=== PATIENT | female | born 1935 | race Caucasian/White ===

== ENCOUNTER → 2016-07-16 | Outpatient (CLI) | payer MEDICARE, OTHER | END | disposition home or self-care (01) | LOC: PCVCIMAG 10:33 | PROVIDERS: ATTEND Nuclear Medicine Nuclear Cardiology | DX: I70.213 Atherosclerosis of native arteries of extremities with intermittent claudication, bilateral legs (principal); I25.10 Atherosclerotic heart disease of native coronary artery without angina pectoris; I77.9 Disorder of arteries and arterioles, unspecified; I10 Essential (primary) hypertension; E78.00 Pure hypercholesterolemia, unspecified; R06.09 Other forms of dyspnea | CPT/HCPCS: 93925; G0463 ==

== ENCOUNTER → 2016-08-02 | Outpatient (CLI) | payer MEDICARE, OTHER ==
[~2016-08-02] MED LIST: CLOPIDOGREL BISULFATE 75 MG TABLET ONE; DIAZEPAM 10 MG TABLET. ONE; EPTIFIBATIDE BOLUS 2,000 MCG/ML 10ML VIAL. IV ONE; FENTANYL PF 100 MCG/2 ML VIAL. ONE; HEPARIN SODIUM 5,000 UNIT/ML VIAL. ONE; HEPARIN for ARTERIAL LINE 1,500 ML ONE; IODIXANOL 270 MG/ML 100 ML VIAL. ONE; IOHEXOL 350 MG/ML 100 ML VIAL. ONE; IV NORMAL SALINE 1000ML BAG 1,000 ML ONE; IV NORMAL SALINE 500ML BAG 500 ML ONE; LIDOCAINE 1% Multi-Dose 20 ML VIAL. ONE; MIDAZOLAM HCL/PF 2 MG/2 ML VIAL. ONE; ONDANSETRON PF 4 MG/2 ML VIAL. ONE; hydrALAZINE 20 MG/ML VIAL. ONE
== END | disposition home or self-care (01) ==
LOC: PCVCINTER 07:42
PROVIDERS: ATTEND Nuclear Medicine Nuclear Cardiology
DX: I70.1 Atherosclerosis of renal artery (principal); I77.1 Stricture of artery; I70.201 Unspecified atherosclerosis of native arteries of extremities, right leg
CPT/HCPCS: 36252; 37186; 37225; 37236; 75716; 76937; 93458; C1725; C1751; C1757; C1760; C1769; C1876; C1885; C1887; C1894; C2623; J0360; J1327; J1644; J2250; J2405; J3010; J7030; J7040; Q9967

== ENCOUNTER → 2016-11-12 | Outpatient (CLI) | payer MEDICARE, OTHER ==
--- NOTE | 2016-11-12 14:27 | PCVCIMAG ---
EXAM: BILATERAL CAROTID DUPLEX INDICATION: Carotid Occlusive Disease. FINDINGS: Doppler Measurements (centimeters per second): RIGHT: Peak CCA-70, Peak ECA-90, Diastolic ICA-21, Peak ICA-96, ICA/CCA Ratio-1.4. LEFT: Peak CCA-88, Peak ECA-75, Diastolic ICA-19, Peak ICA-101, ICA/CCA Ratio-1.1. RIGHT CAROTID: The carotid bulb has mild plaque. The proximal internal carotid artery shows <40% stenosis. The common carotid artery shows no significant stenosis. The external carotid artery shows no significant stenosis. LEFT CAROTID: The carotid bulb has mild plaque. The proximal internal carotid artery shows <40% stenosis. The common carotid artery shows no significant stenosis. The external carotid artery shows no significant stenosis. Antegrade flow in both vertebral arteries. IMPRESSION: <40% stenosis of the right internal carotid artery with mild plaque. <40% stenosis of the left internal carotid artery with mild plaque. LOC:[id number]
--- NOTE | 2016-11-12 14:39 | PCVCIMAG ---
EXAM: NONINVASIVE ARTERIAL EXAMINATION OF BOTH LOWER EXTREMITIES INCLUDING PRE AND POST EXERCISE PRESSURE MEASUREMENTS AND DOPPLER WAVEFORMS INDICATION: Peripheral Arterial Disease. Leg pain. FINDINGS: Right Brachial: 126 mm Hg. Right Dorsalis Pedis: 85 mm Hg. Right Posterior Tibial: 87 mm Hg. Right RICHARD = 0.69. Left Brachial: 120 mm Hg. Left Dorsalis Pedis: 97 mm Hg. Left Posterior Tibial: 100 mm Hg. Left RICHARD = 0.79. Post Exercise: Right Brachial 121 mm Hg. Right Posterior Tibial: 48 mm Hg. Left Posterior Tibial: 85 mm Hg. Right RICHARD = 0.40. Left RICHARD = 0.70. IMPRESSION: Mild/moderate resting ischemia in the right lower extremity. Moderately severe exercise induced ischemia in the right lower extremity. Mild resting ischemia in the left lower extremity. Mild/moderate exercise induced ischemia in the left lower extremity. LOC:[id number]
--- NOTE | 2016-11-12 14:49 | PCVCIMAG ---
EXAM: BILATERAL LOWER EXTREMITY ARTERIAL DUPLEX INDICATION: Peripheral Arterial Disease. Leg pain. FINDINGS: Right Leg: Satisfactory arterial waveforms in the common femoral and profunda femoral artery and in the superficial femoral artery and popliteal artery. Only very mild stenosis in the mid superficial femoral artery is noted not felt to be flow-limiting. 50-60% stenosis proximal/mid right anterior tibial artery. Peroneal artery and posterior tibial arteries are patent. Left Leg: Satisfactory arterial waveforms in the common femoral artery. 70% stenosis at the origin the profunda femoral artery. Chronic occlusion of the [place] superficial femoral artery and upper popliteal artery. Postsurgical changes of [id number]-ilbum-[id number] popliteal artery bypass graft which is maintaining satisfactory patency. 50% stenosis mid left anterior tibial artery. The peroneal artery and posterior tibial arteries are patent. IMPRESSION: No significant right superficial femoral artery or popliteal artery stenosis. 50-60% stenosis proximal/mid right anterior tibial artery. Left femoral-below knee popliteal artery bypass graft maintaining satisfactory patency. 50% stenosis mid left anterior tibial artery. LOC:[id number]
== END | disposition home or self-care (01) ==
LOC: PCVCIMAG 12:53
PROVIDERS: ATTEND Nuclear Medicine Nuclear Cardiology
DX: I70.203 Unspecified atherosclerosis of native arteries of extremities, bilateral legs (principal); I65.23 Occlusion and stenosis of bilateral carotid arteries; I25.10 Atherosclerotic heart disease of native coronary artery without angina pectoris; I77.89 Other specified disorders of arteries and arterioles; I10 Essential (primary) hypertension; E78.00 Pure hypercholesterolemia, unspecified; Z95.828 Presence of other vascular implants and grafts; Z90.49 Acquired absence of other specified parts of digestive tract; Z87.891 Personal history of nicotine dependence; Z79.82 Long term (current) use of aspirin; Z88.0 Allergy status to penicillin; Z88.2 Allergy status to sulfonamides; Z88.8 Allergy status to other drugs, medicaments and biological substances
CPT/HCPCS: 80061; 93005; 93880; 93923; 93925; G0463; 93924

== ENCOUNTER → 2017-01-13 | Outpatient (CLI) | payer MEDICARE, OTHER | END | disposition home or self-care (01) | LOC: PCVCCLINIC 09:35 | PROVIDERS: ATTEND Internal Medicine Cardiovascular Disease | DX: I73.9 Peripheral vascular disease, unspecified (principal); I25.10 Atherosclerotic heart disease of native coronary artery without angina pectoris; I77.9 Disorder of arteries and arterioles, unspecified; I10 Essential (primary) hypertension; E78.00 Pure hypercholesterolemia, unspecified; Z90.49 Acquired absence of other specified parts of digestive tract; Z90.710 Acquired absence of both cervix and uterus; Z95.828 Presence of other vascular implants and grafts; Z87.891 Personal history of nicotine dependence; Z88.0 Allergy status to penicillin; Z88.2 Allergy status to sulfonamides; Z88.8 Allergy status to other drugs, medicaments and biological substances; Z79.82 Long term (current) use of aspirin | CPT/HCPCS: 80061; 93005; G0463 ==

== ENCOUNTER → 2017-05-31 | Outpatient (CLI) | payer MEDICARE, OTHER ==
[~2017-05-31] MED LIST changes: -CLOPIDOGREL BISULFATE 75 MG TABLET ONE; +DIAZEPAM 10 MG TABLET.; -DIAZEPAM 10 MG TABLET. ONE; +EPINEPHrine 1 MG/ML VIAL; -EPTIFIBATIDE BOLUS 2,000 MCG/ML 10ML VIAL. IV ONE; -FENTANYL PF 100 MCG/2 ML VIAL. ONE; +HEPARIN SODIUM 5,000 UNIT/ML VIAL for PCVC.; -HEPARIN SODIUM 5,000 UNIT/ML VIAL. ONE; -HEPARIN for ARTERIAL LINE 1,500 ML ONE; +IODIXANOL 270 MG/ML 100 ML VIAL.; -IODIXANOL 270 MG/ML 100 ML VIAL. ONE; -IOHEXOL 350 MG/ML 100 ML VIAL. ONE; +IV NORMAL SALINE 1000ML BAG 1,000 ML; -IV NORMAL SALINE 1000ML BAG 1,000 ML ONE; -IV NORMAL SALINE 500ML BAG 500 ML ONE; +LIDOCAINE 1% Multi-Dose 20 ML VIAL.; -LIDOCAINE 1% Multi-Dose 20 ML VIAL. ONE; +MIDAZOLAM HCL/PF 2 MG/2 ML VIAL.; -MIDAZOLAM HCL/PF 2 MG/2 ML VIAL. ONE; +NITROGLYCERIN PREMIX 250 ML IV; -ONDANSETRON PF 4 MG/2 ML VIAL. ONE; +VANCOMYCIN 1GM IVPB FOR OMNI 250 ML; +fentaNYL PF VIAL 100 MCG/2 ML VIAL; +hydrALAZINE 20 MG/ML VIAL.; -hydrALAZINE 20 MG/ML VIAL. ONE
== END | disposition home or self-care (01) ==
LOC: PCVCINTER 09:16
DX: I70.213 Atherosclerosis of native arteries of extremities with intermittent claudication, bilateral legs (principal); I25.10 Atherosclerotic heart disease of native coronary artery without angina pectoris; I10 Essential (primary) hypertension; I70.1 Atherosclerosis of renal artery
CPT/HCPCS: 36245; 36252; 37236; 75716; 76937; 99152; 99153; C1713; C1725; C1751; C1769; C1874; C1894; J0171; J0360; J1644; J2250; J3010; J3370; J3490; J7030

== ENCOUNTER → 2017-07-12 | Outpatient (CLI) | payer MEDICARE, OTHER | END | disposition home or self-care (01) | LOC: PCVCCLINIC 16:23 | DX: I25.10 Atherosclerotic heart disease of native coronary artery without angina pectoris (principal); I70.1 Atherosclerosis of renal artery; I77.9 Disorder of arteries and arterioles, unspecified; I73.9 Peripheral vascular disease, unspecified; E78.00 Pure hypercholesterolemia, unspecified; I10 Essential (primary) hypertension; Z98.890 Other specified postprocedural states; Z87.891 Personal history of nicotine dependence; Z79.82 Long term (current) use of aspirin; Z79.899 Other long term (current) drug therapy | CPT/HCPCS: 93005; G0463 ==

== ENCOUNTER → 2017-12-23 | Outpatient (CLI) | payer MEDICARE, OTHER ==
--- NOTE | 2017-12-23 13:59 | PCVCIMAG ---
EXAM: BILATERAL CAROTID DUPLEX INDICATION: Carotid Occlusive Disease. FINDINGS: Doppler Measurements (centimeters per second): RIGHT: Peak CCA-69, Peak ECA-74, Diastolic ICA-13, Peak ICA-71, ICA/CCA Ratio-1.0. LEFT: Peak CCA-51, Peak ECA-78, Diastolic ICA-22, Peak ICA-77, ICA/CCA Ratio-1.2. RIGHT CAROTID: The carotid bulb has moderate plaque. The proximal internal carotid artery shows <40% stenosis. The common carotid artery shows no significant stenosis. The external carotid artery shows no significant stenosis. LEFT CAROTID: The carotid bulb has moderate plaque. The proximal internal carotid artery shows <40% stenosis. The common carotid artery shows no significant stenosis. The external carotid artery shows no significant stenosis. Antegrade flow in both vertebral arteries. IMPRESSION: <40% stenosis of the right internal carotid artery with moderate plaque. <40% stenosis of the left internal carotid artery with moderate plaque. No change since October 2016 study. LOC:[id number]
--- NOTE | 2017-12-23 14:32 | PCVCIMAG ---
EXAM: BILATERAL RENAL ULTRASOUND AND BILATERAL RENAL DUPLEX INDICATION: Hypertension FINDINGS: Right kidney: Length measures 11.5 cm. No hydronephrosis or extensive renal scarring. Right renal duplex: Adequate technical quality. No sonographic evidence of renal artery stenosis. The aortic to renal artery ratio is 2.4. The renal vein is patent. Left kidney: Length measures 10.8 cm. No hydronephrosis or extensive renal scarring. Left renal duplex: Adequate technical quality. No sonographic evidence of renal artery stenosis. The aortic to renal artery ratio is 2.1. The renal vein is patent. Bladder: No obvious abnormalities. IMPRESSION: No significant renal artery stenosis. No hydronephrosis bilaterally. LOC:[id number]
--- NOTE | 2017-12-23 15:11 | PCVCIMAG ---
EXAM: BILATERAL LOWER EXTREMITY ARTERIAL DUPLEX INDICATION: Peripheral Arterial Disease. Leg pain. FINDINGS: Right Leg: Common femoral profunda femoral arteries are patent. Increased systolic velocity 140 cm/s [place] right superficial femoral artery consistent with 80-90% stenosis has increased in severity since May 2017 study. Popliteal artery is patent although the waveforms are blunted somewhat. The anterior tibial, peroneal, and posterior tibial arteries are patent. Left Leg: Common femoral and profunda femoral arteries are patent. [place] superficial femoral artery shows complete occlusion. Postsurgical changes of nibtbzh-kftlh-xhze popliteal artery bypass graft is maintaining satisfactory patency. The anterior tibial, peroneal, and posterior tibial arteries are patent. IMPRESSION: Interval development of 80-90% stenosis mid [place] right superficial femoral artery. Previous left femoral-popliteal artery vein bypass graft maintaining satisfactory patency. LOC:[id number]
== END | disposition home or self-care (01) ==
LOC: PCVCIMAG 14:56
PROVIDERS: ATTEND Internal Medicine Cardiovascular Disease
DX: I73.9 Peripheral vascular disease, unspecified (principal); I70.1 Atherosclerosis of renal artery; I10 Essential (primary) hypertension; I65.23 Occlusion and stenosis of bilateral carotid arteries; I77.9 Disorder of arteries and arterioles, unspecified; I25.10 Atherosclerotic heart disease of native coronary artery without angina pectoris; E78.00 Pure hypercholesterolemia, unspecified; I48.91 Unspecified atrial fibrillation; Z79.82 Long term (current) use of aspirin
CPT/HCPCS: 76770; 93880; 93925; 93975; G0463

== ENCOUNTER → 2017-12-30 | Outpatient (CLI) | payer MEDICARE, OTHER ==
[~2017-12-30] MED LIST changes: -DIAZEPAM 10 MG TABLET.; +DIAZEPAM 10 MG TABLET. ONE; -EPINEPHrine 1 MG/ML VIAL; +EPTIFIBATIDE BOLUS 2,000 MCG/ML 10ML VIAL. IV ONE; +HEPARIN 1,000 UNIT/ML VIAL for PCVC ONE; -HEPARIN SODIUM 5,000 UNIT/ML VIAL for PCVC.; +HEPARIN SODIUM 5,000 UNIT/ML VIAL for PCVC. ONE; -IODIXANOL 270 MG/ML 100 ML VIAL.; +IODIXANOL 270 MG/ML 100 ML VIAL. ONE; +IOHEXOL 350 MG/ML 100 ML VIAL. ONE; -IV NORMAL SALINE 1000ML BAG 1,000 ML; +IV NORMAL SALINE 1000ML BAG 1,000 ML ONE; +IV NORMAL SALINE 500ML BAG 1,500 ML ONE; -LIDOCAINE 1% Multi-Dose 20 ML VIAL.; +LIDOCAINE 1%/EPI 1:100,000 20 ML VIAL. ONE; +METOPROLOL TARTRATE 5 MG/5 ML VIAL. IVP ONE; -MIDAZOLAM HCL/PF 2 MG/2 ML VIAL.; +MIDAZOLAM HCL/PF 2 MG/2 ML VIAL. ONE; -NITROGLYCERIN PREMIX 250 ML IV; +ONDANSETRON PF 4 MG/2 ML VIAL. ONE; -VANCOMYCIN 1GM IVPB FOR OMNI 250 ML; +VANCOMYCIN 1GM IVPB FOR OMNI 250 ML ONE; -fentaNYL PF VIAL 100 MCG/2 ML VIAL; +fentaNYL PF VIAL 100 MCG/2 ML VIAL ONE; -hydrALAZINE 20 MG/ML VIAL.
--- NOTE | 2017-12-30 16:56 | PCVCINTER ---
APPROVED REPORT Study performed: 12/30/2017 09:47:50 Patient Details Patient Status: Out-Patient Room #: 3 The patient is a 82 year-old Female Event Personnel Juan A Palma MD, Gabriel Chapa RT(R), Nick Kunz RN, Nat Sandhu RT(R)() Risk Factors Arterial HypertensionDysplipidemia (Type: 1), Cerebrovascular DiseasePeripheral Vascular Disease, Hypercholesterolemia, Last Creatanine 0.9Tobacco History (Former) Previous Procedures/Diagnoses Previous Femoral Procedure, Previous Vascular Surgery, Peripheral vascular disease->Positive non-invasive/invasive test, PVD, Hypertension, CAD Procedure Narrative A 6F sheath was inserted into the left femoral artery. Coronary angiography was performed using coronary diagnostic catheters. The right coronary system was accessed and visualized with a JR4 catheter. The left coronary system was accessed and visualized with a JL4 catheter. The left ventricle was accessed and visualized with a Straight Pigtail catheter. Left ventriculogram was performed in SILVA projection. Hemodynamics The aortic pressure is 140/56 mmHg with a mean of mmHg. The left ventricular pressure is 119/-1 mmHg with a mean of -4 mmHg. Conclusion #1 normal left ventricular size and hyperdynamic LV function EF 65% #2 LAD with a moderate proximal mid vessel lesion of 30-40% extends to the apex #3 circumflex OM nondominant moderate sizesignificant occlusive disease #4 dominant right coronary with no occlusive disease Recommendations and plan: Continue aggressive risk factor modification. Follow post peripheral stent protocol see Dr. Cueto's dictation.
--- NOTE | 2017-12-30 18:21 | PCVCINTER ---
EXAM: 1. AORTOGRAM AND BILATERAL LOWER EXTREMITY RUNOFF ANGIOGRAM 2. BILATERAL RENAL ANGIOGRAPHY 3. RIGHT SUPERFICIAL FEMORAL ARTERY ATHERECTOMY AND DRUG COATED BALLOON ANGIOPLASTY. 4. SECONDARY THROMBECTOMY RIGHT SUPERFICIAL FEMORAL ARTERY. 5. LEFT RENAL ARTERY STENT PLACEMENT. INDICATION: Peripheral arterial disease. Coronary artery disease. Leg pain. Hypertension. Renal atherosclerosis. No prior catheter based angiographic study is available. A full diagnostic angiogram study is performed today and the decision to intervene is based on this diagnostic study. PROCEDURE: Procedure and risks of angiography intervention is appropriate including limb loss stroke and were discussed with the patient's family and consent obtained. The patient's left groin was prepped in the normal sterile fashion. IV conscious sedation was used throughout procedure with appropriate monitoring from 9:00 AM through 10:30 AM. Ultrasound was used to interrogate the left groin and showed the left common femoral artery to be patent. A permanent spot film was obtained. Under ultrasound guidance access into the left common femoral artery was obtained and a 5 Stateless sheath was placed. Through this a 5 Stateless flush catheter was placed into the abdominal aorta at the level of the renal arteries and AP aortogram was performed. Catheter was positioned at the aortic bifurcation and both oblique views of the pelvis were obtained. Catheter was positioned into the left external iliac artery and left leg runoff angiography was performed. Catheter was exchanged for a visceral catheter was placed into the right renal arteries and right renal angiograms obtained. Catheter was placed into the the left renal arteries and left renal angiograms were obtained. Catheter was advanced to the level of the right external iliac artery and right leg runoff angiography was obtained. Patient was given 4000 units of heparin. Stent placement across the areas of high-grade stenosis in the left renal artery was carried out with a 5 x 12 [place] blue stent with subsequent dilatation to 5.0 mm. A 6 Stateless crossover sheath was placed via the left groin to the level of the right common femoral artery. Atherectomy of the right mid/distal superficial femoral artery was performed with 2.0 mm [employer] laser atherectomy catheter in the standard fashion. Following atherectomy small areas of thrombus were observed and because of this secondary thrombectomy throughout the right superficial femoral artery was carried out with mechanical suction thrombectomy catheter in the standard fashion. Minimal debris was removed. Following this drug coated balloon angioplasty of the right mid/distal superficial femoral artery was carried out with a 4 x 120 and 4 x 120 [employer] Amisha Jagdeep CANDLES POURER catheters. Follow-up angiogram was performed. Catheters and wires removed. Sheath was removed and hemostasis obtained using the FISH device. No immediate complications. FINDINGS: Aortogram: There is one right and 2 left renal arteries. Moderate plaque infrarenal abdominal aorta. Pelvis: Previous stents in the right and left common iliac arteries are maintaining satisfactory patency. Both internal iliac arteries are patent. Both external iliac arteries are patent. The right common and profunda femoral arteries are patent. In the distal left common femoral artery appears to be a 50% stenosis with 60-70% stenosis noted at the origin the left profunda femoral artery. [place] left superficial femoral artery is occluded Right renal artery: Previous stent proximal vessel maintaining good patency. Mid and distal vessel also patent. Left renal artery: There are 2 left renal arteries. The upper renal artery is the smaller renal artery but shows good patency throughout. In the lower renal artery proximally is a prior stent and at the distal margin of the stent is 80% stenosis. Right leg: The superficial femoral artery is somewhat small in size and shows 99% stenoses in its mid and distal portion. The popliteal artery is patent. There is high-grade stenosis in the mid anterior tibial artery. The peroneal artery shows good patency throughout as does the posterior tibial artery although both vessels are somewhat small. Left leg: . Occlusion of the superficial femoral artery and upper popliteal artery within the areas of prior stent. Postsurgical changes of femoral to below-knee popliteal artery saphenous vein graft which appears patent. There is at least 50% stenosis at the proximal anastomosis with the distal left common femoral artery. Otherwise the graft is widely patent throughout. The [place] mid and distal popliteal artery is small but otherwise patent. The anterior tibial artery is occluded throughout much of its length. The posterior tibial artery is diminutive in size. The most dominant runoff vessel is the peroneal artery which shows adequate patency to refill the plantar arteries. Right superficial femoral artery: Following procedure as noted above vessel shows satisfactory patency. Left renal artery: Following procedure as above vessel shows good patency throughout. IMPRESSION: There is 99% stenosis in the mid and distal portion of the right superficial femoral artery again was treated with atherectomy and drug coated balloon angioplasty with satisfactory patency restored. Previous left femoral-popliteal artery vein graft remains patent although the junction of the left common femoral artery and the proximal anastomosis of the graft is at least a 50% stenosis. Follow-up in 1 month with duplex will be obtained. LOC:[id number]
== END | disposition home or self-care (01) ==
LOC: PCVCINTER 07:39
PROVIDERS: ATTEND Internal Medicine Cardiovascular Disease
DX: I70.293 Other atherosclerosis of native arteries of extremities, bilateral legs (principal); I70.1 Atherosclerosis of renal artery; I25.10 Atherosclerotic heart disease of native coronary artery without angina pectoris; I70.0 Atherosclerosis of aorta; I10 Essential (primary) hypertension; E78.00 Pure hypercholesterolemia, unspecified; I48.91 Unspecified atrial fibrillation; Z79.899 Other long term (current) drug therapy; G45.4 Transient global amnesia; Z90.49 Acquired absence of other specified parts of digestive tract; Z90.710 Acquired absence of both cervix and uterus; Z98.890 Other specified postprocedural states; Z87.891 Personal history of nicotine dependence; Z91.040 Latex allergy status; Z88.0 Allergy status to penicillin; Z88.2 Allergy status to sulfonamides; Z88.1 Allergy status to other antibiotic agents; Z88.8 Allergy status to other drugs, medicaments and biological substances
CPT/HCPCS: 36252; 37186; 37225; 37236; 75716; 76937; 93458; 99152; 99153; C1725; C1751; C1757; C1769; C1876; C1885; C1887; C1894; C2623; J1327; J1644; J2250; J2405; J3010; J3370; J3490; J7030; J7040; Q9966; Q9967

== ENCOUNTER → 2018-01-31 | Outpatient (CLI) | payer MEDICARE, OTHER ==
--- NOTE | 2018-01-31 16:34 | PCVCIMAG ---
EXAM: BILATERAL LOWER EXTREMITY ARTERIAL DUPLEX INDICATION: Peripheral Arterial Disease. Leg pain. FINDINGS: Right Leg: Common femoral profunda femoral arteries are patent. Superficial femoral artery has scattered areas of mild velocity elevation but no evidence of flow-limiting superficial femoral or popliteal artery stenoses. Occlusion of the mid anterior tibial artery. The peroneal artery and posterior tibial artery are patent. Left [place]% stenosis distal common femoral artery and at the origin of the left femoral-popliteal artery bypass graft. [place] superficial femoral artery shows chronic occlusion. Mid and distal popliteal artery is patent. The anterior tibial, peroneal, and posterior tibial arteries are patent. IMPRESSION: Occlusion of the mid right anterior tibial artery. Otherwise no flow limiting stenosis in the right lower extremity. 70% stenosis at the junction of the distal left common femoral artery and proximal anastomosis of the left femoral-popliteal artery bypass graft. LOC:[id number]
== END | disposition home or self-care (01) ==
LOC: PCVCIMAG 16:00
PROVIDERS: ATTEND Nuclear Medicine Nuclear Cardiology
DX: I73.9 Peripheral vascular disease, unspecified (principal); I77.9 Disorder of arteries and arterioles, unspecified; I70.1 Atherosclerosis of renal artery; I25.10 Atherosclerotic heart disease of native coronary artery without angina pectoris; I10 Essential (primary) hypertension; I48.91 Unspecified atrial fibrillation; E78.00 Pure hypercholesterolemia, unspecified; Z87.891 Personal history of nicotine dependence; Z79.899 Other long term (current) drug therapy
CPT/HCPCS: 93925; G0463

== ENCOUNTER → 2018-08-16 | Outpatient (CLI) | payer MEDICARE, OTHER ==
--- NOTE | 2018-08-16 19:43 | PCVCIMAG ---
EXAM: BILATERAL LOWER EXTREMITY ARTERIAL DUPLEX INDICATION: Peripheral Arterial Disease. Leg pain. FINDINGS: Right Leg: Common femoral and profunda femoral arteries are patent. 40-50% stenosis distal [place] superficial femoral artery. Popliteal artery is patent. Mild stenosis mid anterior tibial artery. Peroneal and posterior tibial arteries are patent. Left Leg: Mild stenosis common femoral artery. Occlusion throughout the superficial femoral artery is unchanged. Post surgical changes of femoral-popliteal artery bypass graft shows mild 40-50% stenosis at the proximal anastomosis of the graft not felt to be flow-limiting. Popliteal artery is patent. The anterior tibial, peroneal, and posterior tibial arteries are patent. IMPRESSION: 40-50% stenosis distal [place] right superficial femoral artery. 40-50% stenosis of the proximal anastomosis of the left femoral-popliteal artery bypass graft is not felt be flow-limiting. Little overall change since January 2018 study. LOC:[id number]
== END | disposition home or self-care (01) ==
LOC: PCVCIMAG 09:43
PROVIDERS: ATTEND Internal Medicine Cardiovascular Disease
DX: I73.9 Peripheral vascular disease, unspecified (principal); I25.10 Atherosclerotic heart disease of native coronary artery without angina pectoris; E78.00 Pure hypercholesterolemia, unspecified; I48.91 Unspecified atrial fibrillation; I65.23 Occlusion and stenosis of bilateral carotid arteries; Z98.890 Other specified postprocedural states; Z79.899 Other long term (current) drug therapy
CPT/HCPCS: 93005; 93925; G0463

== ENCOUNTER → 2019-03-01 | Outpatient (CLI) | payer MEDICARE ==
--- NOTE | 2019-03-01 12:10 | PCVCIMAG ---
EXAM: BILATERAL RENAL ULTRASOUND AND BILATERAL RENAL DUPLEX INDICATION: Hypertension FINDINGS: Right kidney: Length measures 10.3 cm. No hydronephrosis or extensive renal scarring. Right renal duplex: Adequate technical quality. No sonographic evidence of renal artery stenosis. The aortic to renal artery ratio is 2.4. The renal vein is patent. Left kidney: Length measures 10.2 cm. No hydronephrosis or extensive renal scarring. Incidental note is made of a 1.1 cm benign cyst midpole. Left renal duplex: Adequate technical quality. No sonographic evidence of renal artery stenosis. The aortic to renal artery ratio is 2.7. The renal vein is patent. Bladder: No obvious abnormalities. IMPRESSION: No significant renal artery stenosis. No hydronephrosis bilaterally. LOC:[id number]
== END | disposition home or self-care (01) ==
LOC: PCVCIMAG 10:19
PROVIDERS: ATTEND Internal Medicine Cardiovascular Disease
DX: I10 Essential (primary) hypertension (principal)
CPT/HCPCS: 76770; 93975